=== PATIENT | female | born 1980 | race Hispanic/Latino ===

== ENCOUNTER 2018-03-06 07:32 | Day surgery (SDC) | payer BC ==
[2018-03-05 15:26] LABS: BASOPHILS % (AUTO) 0.5 % (0.0-5.0); EOSINOPHILS % (AUTO) 2.8 % (0.0-8.0); HEMATOCRIT 39.4 % (36-48); LYMPHOCYTES % (AUTO) 21.7 % (21.0-51.0); MEAN CORPUSCULAR HEMOGLOBIN 29.1 pg (27.0-33.0); MEAN CORPUSCULAR HGB CONC 32.9 g/dL (32.0-36.0); MEAN CORPUSCULAR VOLUME 88.4 fL (79-99); MONOCYTES % (AUTO) 7.5 % (3.0-13.0); NEUTROPHILS % (AUTO) 67.5 % (40.0-77.0); PLATELET COUNT (AUTO) 223 K/uL (130-400); RED BLOOD CELL COUNT(AUTO) 4.45 MIL/uL (4.00-5.50); RED CELL DISTRIBUTION WIDTH 13.4 % (11.0-15.5); WHITE BLOOD COUNT (AUTO) 10.2 K/uL (4.8-10.8)
[2018-03-05 16:06] VITALS: BP 126/73
[2018-03-06] VITALS (13 sets, daily range): BP systolic 100–133; BP diastolic 52–85
[~2018-03-06] VITALS: Ht 160 cm; Wt 70.9 kg
[~2018-03-06 07:32] MED LIST: CALDOLOR 800MG+NS 250ML 250 ML IV PRN; LACTATED RINGERS 1000ML 1,000 ML IV SCH
[2018-03-06] MEDS ORDERED: BUPIVACAINE/PF 0.5% 30ML VIAL ONE (10:08)
[2018-03-06] MEDS ORDERED: LIDOCAINE PF 2% 5ML ABBOJECT ONE (10:10)
[2018-03-06] MEDS ORDERED: MIDAZOLAM HCL 1 MG/ML 2ML VIAL ONE (10:10)
[2018-03-06] MEDS ORDERED: ROCURONIUM 10MG/1ML SYR 10 MG/ML ML ONE (10:10)
[2018-03-06] MEDS ORDERED: PROPOFOL 10 MG/ML 20ML VIAL IV ONE ×2 (10:10→12:03)
[2018-03-06] MEDS ORDERED: FENTANYL CITRATE PF 50 MCG/1 ML 5ML AMP IV ONE (10:10)
[2018-03-06] MEDS ORDERED: ONDANSETRON HCL 4 MG/2 ML VIAL ONE (10:10)
[2018-03-06] MEDS ORDERED: GLYCOPYRROLATE 1 MG/5 ML SYRINGE ONE (11:52)
[2018-03-06] MEDS ORDERED: NEOSTIGMINE 5MG/5ML SYR IV ONE (11:52)
[2018-03-06] MEDS ORDERED: FENTANYL CITRATE PF 50 MCG/1 ML 2ML VIAL ONE (12:11)
== END 2018-03-06 14:00 | disposition home or self-care (01) ==
LOC: DAH 07:32
DX: Z30.2 Encounter for sterilization (principal); Z30.432 Encounter for removal of intrauterine contraceptive device; N83.8 Other noninflammatory disorders of ovary, fallopian tube and broad ligament; Z80.49 Family history of malignant neoplasm of other genital organs
CPT/HCPCS: 36415; 58301; 58563; 58670; 84702; 85025; 88104; 88300; 88302; 88305; 96365; A4215; A4351; A4510; A4600; A4649 ×2; C1769 ×2; G0168; J1741; J2001; J2250; J2405; J2704 ×2; J2710; J3010 ×2; J3490 ×2; J7120 ×2

== ENCOUNTER → 2019-04-16 | Outpatient (CLI) | payer BC | END | disposition home or self-care (01) | LOC: SHCH 11:39 | PROVIDERS: ATTEND Internal Medicine Cardiovascular Disease | DX: H93.A2 Pulsatile tinnitus, left ear (principal) | CPT/HCPCS: 93880 ==